=== PATIENT | female | born 2000 ===

== ENCOUNTER 2023-09-29 15:14 | Outpatient (CLI) | payer OTHER | END 2023-09-29 15:15 | disposition home or self-care (01) | LOC: PRENATAL 15:14 | PROVIDERS: ATTEND Obstetrics & Gynecology Maternal & Fetal Medicine | DX: O26.849 Uterine size-date discrepancy, unspecified trimester (principal); O36.8199 Decreased fetal movements, unspecified trimester, other fetus; Z3A.34 34 weeks gestation of pregnancy ==

== ENCOUNTER 2023-10-22 11:02 | Outpatient (CLI) | payer OTHER | END 2023-10-22 11:03 | disposition home or self-care (01) | LOC: PRENATAL 11:02 | PROVIDERS: ATTEND Obstetrics & Gynecology Maternal & Fetal Medicine | DX: O26.849 Uterine size-date discrepancy, unspecified trimester (principal); O36.8199 Decreased fetal movements, unspecified trimester, other fetus; Z3A.37 37 weeks gestation of pregnancy ==

== ENCOUNTER 2023-11-02 21:52 | Inpatient (IN) | payer OTHER ==
[~2023-11-02] VITALS: Ht 152.4 cm; Wt 68.5 kg
[2023-11-02] MEDS ORDERED: VALACYCLOVIR500 MG PO (22:26)
[2023-11-02 23:28] LABS: HEMATOCRIT 34.5 % (36.0-45.00); HEMOGLOBIN 11.9 g/dL (12.0-15.00); MEAN CELL VOLUME 87.8 fL (80.00-100.00); MEAN CORPUSCULAR HEMOGLOBIN 30.4 pg (27.00-32.0); MEAN CORPUSCULAR HGB CONC 34.6 g/dl (32.0-36.0); PLATELET COUNT 206 K/uL (150-450); RED BLOOD COUNT 3.93 M/uL (4.00-6.00); RED CELL DISTRIBUTION WIDTH 14.3 % (11.5-14.5)
[2023-11-02 23:29] LABS: URINE APPEARANCE Clear; URINE BILIRRUBIN Negative (NEGATIVE); URINE BLOOD Negative; URINE COLOR Yellow; URINE GLUCOSE Negative (NEGATIVE); URINE LEUKOCYTE Trace; URINE NITRATE Negative; URINE PROTEIN Trace (NEGATIVE)
[2023-11-02 23:33] LABS: URINE BACTERIA 2211.1 uL (0.0-1933); URINE EPITHELIAL CELLS 76.8 uL (0.0-38.8); URINE WBC 53.9 uL (0.0-23.2)
[2023-11-02 23:43] LABS: INR < 0.93; PARTIAL THROMBOPLASTIN TIME 27.1 SECONDS (22.0-34.0); PROTHROMBIN TIME 9.1 SECONDS (9.0-11.5)
[2023-11-02 23:51] LABS: URINE RBC 1.8 uL (0.0-20.8)
[2023-11-04 00:27] LABS: ABG PH 7.276 (7.35-7.45); ABG PO2 28.5 mmHg (80-100); ABG pCO2 42.2 mmHg (35-45); BASE EXCESS -7.3 mmol/l; BICARBONATE 19.2 mmol/l (23-25); SaO2 42.8 %; Tco2 20.5 mmol/l
[2023-11-04 00:28] LABS: o2 21 %
[2023-11-04 03:31] LABS: HEMATOCRIT 37.1 % (36.0-45.00); HEMOGLOBIN 12.2 g/dL (12.0-15.00); MEAN CELL VOLUME 88.3 fL (80.00-100.00); MEAN CORPUSCULAR HGB CONC 32.9 g/dl (32.0-36.0); PLATELET COUNT 186 K/uL (150-450)
[2023-11-04 03:54] LABS: ALBUMIN 2.4 gm/dL (3.4-5.0); BILIRUBIN TOTAL 0.9 mg/dL (0.3-1.2); CALCIUM 9.1 mg/dL (8.5-10.1); CREATININE SERUM 0.72 mg/dL (0.55-1.02); GFR 101.29; GLOBULINA 3.3 G/DL (2.4-3.5); POTASSIUM 4.02 mEq/L (3.5-5.1); TOTAL PROTEIN 5.7 gm/dL (6.4-8.2)
== END 2023-11-05 17:45 | disposition home or self-care (01) | DRG 807 ==
LOC: LDR 21:52 → OB/GYN 11-03 23:40
PROVIDERS: ADMIT Obstetrics & Gynecology; ATTEND Obstetrics & Gynecology
PROC: 4A1HXCZ Monitoring of Products of Conception, Cardiac Rate, External Approach (ICD-10-PCS; 2023-11-02)
PROC: 3E0P7VZ Introduction of Hormone into Female Reproductive, Via Natural or Artificial Opening (ICD-10-PCS; 2023-11-02)
PROC: 10E0XZZ Delivery of Products of Conception, External Approach (ICD-10-PCS; principal; 2023-11-03)
PROC: 3E033VJ Introduction of Other Hormone into Peripheral Vein, Percutaneous Approach (ICD-10-PCS; 2023-11-03)
DX: O80 Encounter for full-term uncomplicated delivery (principal); Z37.0 Single live birth; Z3A.39 39 weeks gestation of pregnancy; Z20.822 Contact with and (suspected) exposure to COVID-19